=== PATIENT | female | born 1990 | race Hispanic/Latino ===

== ENCOUNTER 2017-08-19 17:14 | Emergency (ER) | payer MEDICAID, OTHER ==
[2017-08-19 21:34] LABS: Hematocrit 40.8 % (30.3-42.9); Hemoglobin 13.7 gm/dl (10.1-14.3); Mean Corpuscular HGB Conc 34 % (30-34); Mean Corpuscular Hemoglobin 30 pg (28-32); Mean Corpuscular Volume 90 fl (79-97); Platelet Count 349 K/mm3 (140-440); Red Blood Count 4.52 M/mm3 (3.65-5.03); Red Cell Distribution Width 13.9 % (13.2-15.2); White Blood Count 15.2 K/mm3 (4.5-11.0)
[2017-08-19 21:40] LABS: Bilirubin,Urine NEG (Negative); Blood,Urine NEG (Negative); Ketones,Urine NEG (Negative); Leukocyte Esterase,Urine TR (Negative); Mucus,Urine FEW /HPF; Nitrite,Urine NEG (Negative); Protein,Urine <15 mg/dL mg/dL (Negative); Urobilinogen,Urine < 2.0 mg/dL (<2.0)
[2017-08-19 21:46] LABS: Anion Gap 15 mmol/L; BUN/Creatinine Ratio 20; Blood Urea Nitrogen 16 mg/dL (7-17); Calcium 9.9 mg/dL (8.4-10.2); Carbon Dioxide 29 mmol/L (22-30); Chloride 100.5 mmol/L (98-107); Glucose 87 mg/dL (65-100); Potassium 5.2 mmol/L (3.6-5.0); Sodium 139 mmol/L (137-145)
[2017-08-19 22:12] LABS: Basophils % (Manual) 0 % (0.0-1.8); Blastocytes % (Manual) 0 %
[2017-08-19 22:13] LABS: Diff Status Complete; RBC Morphology Normal
--- NOTE | 2017-08-19 22:28 | Emergency Department Report ---
ED Abdominal Pain HPI - General Chief Complaint: Abdominal Pain Stated Complaint: VAG. BLEEDING /ULQ PAIN Time Seen by Provider: 08/19/17 22:19 Source: patient, RN/MD, EMS Mode of arrival: Stretcher Limitations: No Limitations - History of Present Illness Initial Comments: Patient is a 27-year-old female presents with bilateral upper quadrant pain for one month. Patient denies fever and chills. She states pain is worse with eating. She also complains of vaginal bleeding 3 weeks. Patient states he had she has a Mirena. Patient states she afraid her Mirena has migrated. Patient denies pain is radiating. Patient denies dysuria. MD Complaint: abdominal pain -: Gradual Location: LUQ, RUQ Radiation: none Severity scale (0 -10): 5 Quality: cramping, aching Consistency: intermittent Improves With: movement Worsens With: eating Associated Symptoms: denies other symptoms - Related Data Previous Rx's Medication Instructions Recorded Last Taken Type Docusate Sodium [Colace] 100 mg PO BID PRN 30 Days #60 08/20/17 Unknown Rx capsule Sulfamethoxazole/Trimethoprim 1 each PO BID 10 Days #20 tablet 08/20/17 Unknown Rx [Bactrim DS TAB] Allergies Allergy/AdvReac Type Severity Reaction Status Date / Time No Known Allergies Allergy Unverified 08/19/17 18:33 ED Review of Systems ROS: Stated complaint: VAG. BLEEDING /ULQ PAIN Other details as noted in HPI Comment: All other systems reviewed and negative Gastrointestinal: abdominal pain ED Past Medical Hx - Past Medical History Previous Medical History?: No - Family History Family history: hypertension - Social History Smoking Status: Current Every Day Smoker Substance Use Type: Prescribed, Methamphetamines - Medications Home Medications: Home Medications Medication Instructions Recorded Confirmed Last Taken Type Docusate Sodium [Colace] 100 mg PO BID PRN 30 Days #60 08/20/17 Unknown Rx capsule Sulfamethoxazole/Trimethoprim 1 each PO BID 10 Days #20 tablet 08/20/17 Unknown Rx [Bactrim DS TAB] ED Physical Exam - General Limitations: No Limitations General appearance: alert, in no apparent distress - Head Head exam: Present: atraumatic, normocephalic - Eye Eye exam: Present: normal appearance - ENT ENT exam: Present: mucous membranes moist - Neck Neck exam: Present: normal inspection - Respiratory Respiratory exam: Present: normal lung sounds bilaterally. Absent: respiratory distress - Cardiovascular Cardiovascular Exam: Present: regular rate, normal rhythm. Absent: systolic murmur, diastolic murmur, rubs, gallop - GI/Abdominal GI/Abdominal exam: Present: soft, tenderness (bilateral lower quadrant tenderness to palpation), normal bowel sounds - Extremities Exam Extremities exam: Present: normal inspection - Back Exam Back exam: Present: normal inspection - Neurological Exam Neurological exam: Present: alert, oriented X3 - Psychiatric Psychiatric exam: Present: normal affect, normal mood - Skin Skin exam: Present: warm, dry, intact, normal color. Absent: rash ED Course Vital Signs 08/19/17 08/19/17 08/20/17 18:23 23:47 00:14 Temperature 98.6 F 97.6 F Pulse Rate 56 L 58 L Respiratory 16 16 18 Rate Blood Pressure 117/75 Blood Pressure 119/67 [Left] O2 Sat by Pulse 98 98 98 Oximetry ED Medical Decision Making - Lab Data Result diagrams: 08/19/17 21:19 08/19/17 21:19 Critical care attestation.: If time is entered above; I have spent that time in minutes in the direct care of this critically ill patient, excluding procedure time. ED Disposition Clinical Impression: Abdominal pain, UTI (urinary tract infection), Vaginal bleeding, Constipation Disposition: - TO HOME OR SELFCARE Is pt being admited?: No Does the pt Need Aspirin: No Condition: Stable Instructions: Abdominal Pain (ED), Urinary Tract Infection in Women (ED), Constipation (ED), High Fiber Diet (ED) Additional Instructions: Patient to see primary care and [facility] [employer] within 2-4 days. Patient to take Tylenol and ibuprofen when necessary for pain. Patient states prescriptions as directed. Patient to return to ED if condition worsens. Prescriptions: Docusate Sodium [Colace] 100 mg PO BID PRN 30 Days #60 capsule PRN Reason: Constipation Sulfamethoxazole/Trimethoprim [Bactrim DS TAB] 1 each PO BID 10 Days #20 tablet Time of Disposition: 01:24
--- NOTE | 2017-08-19 23:07 | Cat Scan Report ---
FINAL REPORT PROCEDURE: CT ABDOMEN PELVIS WO CON TECHNIQUE: Computerized axial tomography of the abdomen and pelvis was performed without intravenous contrast. This study is performed without intravascular contrast material and its sensitivity for abdominal and pelvic pathology, including neoplasms, inflammation, abscess, free fluid, thrombosis, arterial dissection and infarction, is reduced compared with a contrast enhanced study. HISTORY: abd pain COMPARISON: No prior studies are available for comparison. FINDINGS: There are 2 well-defined hypodense lesions in the subphrenic portion of right lobe liver larger measuring 1.1 x 1.6 centimeters and smaller measuring 1.0 x 0.8 centimeters., Pancreas and bilateral adrenal glands are within normal limits. Bilateral kidneys demonstrate normal density without calculi or hydronephrosis. Aorta is of normal caliber. There is no free fluid or free air. Gallbladder is unremarkable. Small bowel loops are within normal limits. Moderate to large amount of residual stool is noted in the colon and rectum. Appendix is normal. An intrauterine contraceptive device is identified in the central . IMPRESSION: Moderate to large amount of residual stool. Two small hypodense lesions of right lobe liver. These can be further evaluated using pre and post-contrast MRI..
[2017-08-20 04:00] VITALS: BP 116/76
== END 2017-08-20 04:02 | disposition home or self-care (01) ==
LOC: ED 17:14
DX: N39.0 Urinary tract infection, site not specified (principal); K59.00 Constipation, unspecified; N93.8 Other specified abnormal uterine and vaginal bleeding; F17.200 Nicotine dependence, unspecified, uncomplicated; F19.10 Other psychoactive substance abuse, uncomplicated
CPT/HCPCS: 36415; 74176; 80048; 81001; 81025; 83690; 85007; 85025